=== PATIENT | female | born 1975 | race Caucasian/White ===

== ENCOUNTER 2017-01-04 16:46 | Emergency (ER) | payer OTHER ==
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
[2017-01-04] MEDS ORDERED: fentaNYL-PF 50 mCg/mL 2 mL Inj IVPUSH ONE ×3 (17:00→19:05)
[2017-01-04] MEDS ORDERED: Ondansetron 2 mg/mL 2 mL Inj IVPUSH PRN (17:00)
[2017-01-04 17:13] LABS: BASOPHILS % (AUTO) 0.3 % (0-3); EOSINOPHILS % (AUTO) 1.4 % (0-5); MONOCYTES % (AUTO) 10.3 % (4-12); Mean Corpuscular Hemoglobin 30.5 pg (27.0-35.0); Mean Corpuscular Volume 88.9 fL (81-100); NEUTROPHILS % (AUTO) 53.7 % (40-74); Platelet Count 310 bil/L (150-400)
[2017-01-04] MEDS ORDERED: CeFAZolin Inj 1 GM in IV Premix 1 EACH IV ONE (17:25)
--- NOTE | 2017-01-04 17:25 | DRSVH ---
CORRECTED ACCESSION/PLACER # AND PROCEDURE NAME ON 01/11/17 PROCEDURE: X-RAY LEFT KNEE, 1 TO 2 VIEWS INDICATIONS: trauma TECHNIQUE: 2 views of the knee were acquired. COMPARISON: None. FINDINGS: Bones: No fractures or dislocations. No suspicious bony lesions. Soft tissues: No joint effusion. No suspicious soft tissue calcifications. IMPRESSION: Previous old ACL repair. No acute abnormality is seen in the left knee. Dictated by: Nikolai Jose M.D. on 01/04/2017 at 17:23 Approved by: Nikolai Jose M.D. on 01/04/2017 at 17:24
--- NOTE | 2017-01-04 17:26 | DRSVH ---
CORRECTED ACCESSION/PLACER # AND PROCEDURE NAME ON 01/11/17 PROCEDURE: X-RAY RIGHT KNEE, 1 TO 2 VIEWS INDICATIONS: trauma TECHNIQUE: 2 views of the knee were acquired. COMPARISON: None. FINDINGS: Bones: No fractures. No suspicious bony lesions. Soft tissues: There is a large joint effusion. No suspicious soft tissue calcifications. IMPRESSION: Appearance of the knee would suggest dislocation of the tibia posteriorly and laterally o n the femur but no acute bony abnormality is seen. Dictated by: Nikolai Jose M.D. on 01/04/2017 at 17:24 Approved by: Nikolai Jose M.D. on 01/04/2017 at 17:25
--- NOTE | 2017-01-04 17:29 | DRSVH ---
PROCEDURE: X-RAY LEFT TIBIA/FIBULA, TWO VIEWS ([id number]) INDICATIONS: trauma TECHNIQUE: 2 views of the tibia and fibula were acquired. COMPARISON: None. FINDINGS: Bones: Acute comminuted fractures are present of the distal tibia and fibula of the left ankle and le g. The fibula is segmental and involves a fracture of the distal diaphysis transversely 21 mm from th e distal tip. There is a second transverse slightly comminuted fracture of the tibial diaphysis at th e junction of the third and fourth quarters 8.7 cm from the distal end. There is thought to be disrup tion of the tibiotalar joint. The distal talus is comminuted and the comminuted fracture lines extend into the articular surface of the tibia. The medial malleolus, portion of the plafond, and several s mall fragments are displaced anteriorly compared to the distal shaft of the tibia. There also displac ed to thickness of the tibia medially. Soft tissues: No suspicious soft tissue calcifications or masses. IMPRESSION: 1. Comminuted fracture of the tibia and fibula with dislocation of the syndesmotic joint. The commin uted fracture involving the tibia articular surfaces with the distal tibial fragments displaced media lly and anteriorly. Dictated by: Nikolai Jose M.D. on 01/04/2017 at 17:25 Approved by: Nikolai Jose M.D. on 01/04/2017 at 17:28
--- NOTE | 2017-01-04 17:31 | DRSVH ---
PROCEDURE: X-RAY LEFT ANKLE, MINIMUM THREE VIEWS ([id number]) INDICATIONS: trauma TECHNIQUE: 3 views of the ankle were acquired. COMPARISON: None. FINDINGS: Bones: No fracture or dislocation is seen of the talus or calcaneus or the tarsal bones or visualized portions of the metatarsals. Ankle mortise is markedly abnormal with the distal tibia comminuted and fragments displaced posterior ly and anteriorly as well as medially. A syndesmotic joint between the tibia and fibula is disrupted and the fibula is fractured segmentally. Soft tissues: No tibiotalar joint effusion. Achilles tendon appears normal. IMPRESSION: Comminuted fracture of the distal tibia and articular surface as well as disruption of th e syndesmosis between the tibia and fibula. Segmental fibular fracture. No fracture of the talus or calcaneus or visualized portion of foot is seen. Dictated by: Nikolai Jose M.D. on 01/04/2017 at 17:28 Approved by: Nikolai Jose M.D. on 01/04/2017 at 17:30
[2017-01-04] MEDS ORDERED: Ketamine 10 mg/mL 20 mL Inj IV ONE ×2 (17:40→19:05)
--- NOTE | 2017-01-04 18:07 | DRSVH ---
PROCEDURE: X-RAY PELVIS, ONE OR TWO VIEWS ([id number]) INDICATIONS: trauma TECHNIQUE: One view(s) of the pelvis acquired. COMPARISON: None. FINDINGS: Bones: No fractures or dislocations. No suspicious bony lesions. Soft tissues: Visualized bowel gas pattern is normal. No suspicious soft tissue calcifications. IMPRESSION: No traumatic abnormality is seen in the AP of the pelvis. Dictated by: Nikolai Jose M.D. on 01/04/2017 at 18:05 Approved by: Nikolai Jose M.D. on 01/04/2017 at 18:06
--- NOTE | 2017-01-04 18:36 | DRSVH ---
PROCEDURE: X-RAY LEFT ANKLE, TWO VIEWS ([id number]) INDICATIONS: post red TECHNIQUE: 2 views of the ankle were acquired. COMPARISON: [facility], CR, XR ANKLE 3VW LT, 01/04/2017, 16:59. FINDINGS: Bones: There is some improvement in the position of the ankle fragments which are still displaced. Th ere is normal alignment of the anterior distal tibial fragment is displaced anteriorly as is the post erior tibial fragment. The medial and lateral malleoli are displaced medially and laterally. IMPRESSION: Improved appearance particularly alignment but displacement is still prominent. Dictated by: Nikolai Jose M.D. on 01/04/2017 at 18:34 Approved by: Nikolai Jose M.D. on 01/04/2017 at 18:35
--- NOTE | 2017-01-04 18:44 | DRSVH ---
PROCEDURE: X-RAY RIGHT KNEE, THREE VIEWS ([id number]) INDICATIONS: POST REDUCTION TECHNIQUE: 3 views of the knee were acquired. COMPARISON: None. FINDINGS: Bones: There is an evulsion nondisplaced of the proximal lateral tibia, probably Gerdy's tubercle, si te of attachment of the iliotibial band. In the lateral view there is calcification representing prob able impaction fracture from the femoral condyle on the anterior aspect of the tibial plateau is a po tential second fracture. No suspicious bony lesions. Soft tissues: There is a moderate oint effusion. No suspicious soft tissue calcifications. IMPRESSION: Fractures involving the lateral tibial plateau and anterior tibial plateau probably media l. Relocated tibia in relationship to the femur. Moderate joint effusion. Dictated by: Nikolai Jose M.D. on 01/04/2017 at 18:38 Approved by: Nikolai Jose M.D. on 01/04/2017 at 18:42
[2017-01-04] MEDS ORDERED: 0.9% Sodium Chloride 1,000 ML IV ONE (19:05)
--- NOTE | 2017-01-04 19:21 | DRSVH ---
PROCEDURE: X-RAY LUMBAR SPINE, 2 OR 3 VIEW INDICATIONS: trauma TECHNIQUE: 3 views of the lumbar spine were acquired. COMPARISON: None. FINDINGS: Bones: 5 [id number] vertebrae are present. There is normal bony alignment. No vertebral body c ompression fractures. No suspicious bony lesions. Soft tissues: Overlying bowel gas pattern is normal. No suspicious soft tissue calcifications. IMPRESSION: There is no traumatic abnormality in the three-view study of the lumbar spine. Study limited by marker placement over the transverse processes on the left of L1 and L2 in the AP pr ojection. Dictated by: Nikolai Jose M.D. on 01/04/2017 at 19:17 Approved by: Nikolai Jose M.D. on 01/04/2017 at 19:19
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
== END 2017-01-04 19:52 | disposition short-term general hospital (02) ==
LOC: EDBD 16:46 → SED 16:46 → EDUNIT# 16:46 → SED 19:52
DX: S82.402B Unspecified fracture of shaft of left fibula, initial encounter for open fracture type I or II (principal); S82.201A Unspecified fracture of shaft of right tibia, initial encounter for closed fracture; V28.4XXA Motorcycle driver injured in noncollision transport accident in traffic accident, initial encounter; Y93.89 Activity, other specified; Y92.410 Unspecified street and highway as the place of occurrence of the external cause; Y99.8 Other external cause status
CPT/HCPCS: 36415; 72100; 72170; 73560; 73562; 73590; 73600; 73610; 80053; 84703; 85025; 86850; 93005; 94770; 94799; 99291; 99292; G0390; G0480